=== PATIENT | female | born 1985 | race Caucasian/White ===

== ENCOUNTER 2017-07-26 01:10 | Emergency (ER) | payer MEDICAID ==
[~2017-07-26] VITALS: Ht 160 cm; Wt 46.7 kg
[2017-07-26 02:30] LABS: BASOPHIL % 0.5 % (0-2); PLATELET COUNT 197 x10^3mcL (130-400); RED CELL DISTRIBUTION WIDTH 13.7 % (11.5-14.5)
[2017-07-26 02:38] LABS: CALCIUM 8.6 mg/dL (8.5-10.1); CARBON DIOXIDE 25.5 mmol/L (21-32); CHLORIDE SERUM 106 mmol/L (98-107); CREATININE SERUM 0.6 mg/dL (0.6-1.0); GFR1 > 60 mL/min; GLUCOSE SERUM 99 mg/dL (74-106); POTASSIUM SERUM 4.1 mmol/L (3.5-5.1); SODIUM SERUM 137 mmol/L (136-145)
[2017-07-26 02:51] LABS: ALBUMIN 3.6 g/dL (3.4-5.0); ALKALINE PHOSPHATASE 49 U/L (46-116); ALT/SGPT 19 U/L (14-59); AST/SGOT 12 U/L (15-37); BILIRUBIN TOTAL 0.2 mg/dL (0.20-1.00); FREE T4 1.11 ng/dL (0.76-1.46); MAGNESIUM 2.1 mg/dL (1.8-2.4); TOTAL PROTEIN, SERUM 7.3 g/dL (6.4-8.2)
[2017-07-26 03:30] VITALS: BP 110/72
== END 2017-07-26 03:30 | disposition home or self-care (01) ==
LOC: ED 01:10
PROVIDERS: Emergency Medicine
DX: F41.1 Generalized anxiety disorder (principal); E03.9 Hypothyroidism, unspecified
CPT/HCPCS: 36415; 84439

== ENCOUNTER 2017-07-28 08:57 | Emergency (ER) | payer MEDICAID ==
[~2017-07-28] VITALS: Ht 157.5 cm; Wt 47.2 kg
[2017-07-28 09:09] VITALS: Ht 157.5 cm; Wt 47.2 kg
[2017-07-28 09:32] LABS: BASOPHIL % 0.1 % (0-2); PLATELET COUNT 229 x10^3mcL (130-400); RED CELL DISTRIBUTION WIDTH 13.6 % (11.5-14.5)
[2017-07-28 09:41] LABS: CALCIUM 8.7 mg/dL (8.5-10.1); CARBON DIOXIDE 25.7 mmol/L (21-32); CHLORIDE SERUM 105 mmol/L (98-107); CREATININE SERUM 0.7 mg/dL (0.6-1.0); GFR1 > 60 mL/min; GLUCOSE SERUM 155 mg/dL (74-106); POTASSIUM SERUM 3.5 mmol/L (3.5-5.1); SODIUM SERUM 139 mmol/L (136-145)
[2017-07-28 10:01] LABS: ALBUMIN 3.8 g/dL (3.4-5.0); ALKALINE PHOSPHATASE 55 U/L (46-116); ALT/SGPT 19 U/L (14-59); AST/SGOT 11 U/L (15-37); BILIRUBIN TOTAL 0.2 mg/dL (0.20-1.00); FREE T4 1.19 ng/dL (0.76-1.46); TOTAL PROTEIN, SERUM 7.9 g/dL (6.4-8.2)
[2017-07-28 12:04] VITALS: BP 120/64
== END 2017-07-28 12:04 | disposition home or self-care (01) ==
LOC: ED 08:57
PROVIDERS: Emergency Medicine
DX: R53.1 Weakness (principal); F41.9 Anxiety disorder, unspecified; E03.9 Hypothyroidism, unspecified
CPT/HCPCS: 84439; J7030

== ENCOUNTER 2017-09-30 08:14 | Emergency (ER) | payer MEDICAID ==
[~2017-09-30] VITALS: Ht 165.1 cm; Wt 45.4 kg
[2017-09-30 08:29] VITALS: Ht 165.1 cm; Wt 45.4 kg
[2017-09-30 09:51] VITALS: BP 128/70
== END 2017-09-30 09:51 | disposition home or self-care (01) ==
LOC: ED 08:14
DX: R10.13 Epigastric pain (principal); R11.2 Nausea with vomiting, unspecified; J02.9 Acute pharyngitis, unspecified; E03.9 Hypothyroidism, unspecified